=== PATIENT | male | born 1945 | race Caucasian/White ===

== ENCOUNTER → 2023-09-18 06:37 | Outpatient (REF) | payer MEDICARE, OTHER, SELFPAY ==
[2023-09-18 07:19] LABS: % Basophils 0.8 % (0-2); % Immature Granulocytes 0.2 % (0-0.5); % Lymphocytes 17.5 % (20.5-51.1); % Monocytes 14.3 % (1.7-9.3); % Neutrophils 58.2 % (42.2-75.2); Absolute Basophils 0.1 10^3/uL (0-0.2); Absolute Eosinophils 0.6 10^3/uL (0-0.7); Absolute Lymphocytes 1.1 10^3/uL (1.2-3.4); Absolute Monocytes 0.9 10^3/uL (0.1-0.6); Absolute Neutrophils 3.7 10^3/uL (1.4-6.5); Hematocrit 42.3 % (39.0-52.0); Hemoglobin 13.4 g/dL (13.0-18.0); Mean Corp Hgb Conc. 31.7 g/dL (33.0-37.0); Mean Corpuscular Hgb 29.7 pg (27.0-31.0); Mean Corpuscular Volume 93.8 fL (80.0-94.0); Nucleated Red Blood Cells % 0 % (-); Platelet Count 184 10^3/uL (130-400); Red Blood Cell Count 4.51 10^6/uL (4.70-6.10); Red Cell Dist. Width 15.1 % (11.5-14.5); White Blood Cell Count 6.3 10^3/uL (4.8-10.8)
== END ==
LOC: REG 06:37
PROVIDERS: ATTENDING PHYSICIAN Family Medicine
DX: E11.22 Type 2 diabetes mellitus with diabetic chronic kidney disease (principal); I10 Essential (primary) hypertension; E78.5 Hyperlipidemia, unspecified; Z12.5 Encounter for screening for malignant neoplasm of prostate; Z68.32 Body mass index [BMI] 32.0-32.9, adult
CPT/HCPCS: 36415; 85025

== ENCOUNTER → 2023-10-14 15:13 | Outpatient (REF) | payer MEDICARE, OTHER, SELFPAY | LOC: RAD 15:13 | PROVIDERS: ATTENDING PHYSICIAN Internal Medicine Critical Care Medicine; FAMILY PHYSICIAN Family Medicine | DX: J84.9 Interstitial pulmonary disease, unspecified (principal) | CPT/HCPCS: 71250 ==

== ENCOUNTER → 2023-11-28 08:56 | Outpatient (REF) | payer MEDICARE, OTHER, SELFPAY | LOC: RCS 08:56 | PROVIDERS: ATTENDING PHYSICIAN Internal Medicine; FAMILY PHYSICIAN Family Medicine | DX: I25.10 Atherosclerotic heart disease of native coronary artery without angina pectoris (principal); I49.3 Ventricular premature depolarization | CPT/HCPCS: 93225; 93226 ==

== ENCOUNTER → 2023-12-25 07:17 | Outpatient (REF) | payer MEDICARE, OTHER, SELFPAY ==
[2023-12-25 08:35] LABS: % Basophils 0.6 % (0-2); % Eosinophils 5.4 % (0-6); % Immature Granulocytes 0.4 % (0-0.5); % Lymphocytes 22.5 % (20.5-51.1); % Neutrophils 57.1 % (42.2-75.2); Absolute Eosinophils 0.3 10^3/uL (0-0.7); Absolute Lymphocytes 1.1 10^3/uL (1.2-3.4); Absolute Monocytes 0.7 10^3/uL (0.1-0.6); Absolute Neutrophils 2.8 10^3/uL (1.4-6.5); Hemoglobin 12.9 g/dL (13.0-18.0); Mean Corp Hgb Conc. 32.3 g/dL (33.0-37.0); Mean Corpuscular Hgb 29.5 pg (27.0-31.0); Mean Corpuscular Volume 91.3 fL (80.0-94.0); Mean Platelet Volume 11.4 fL (7.4-10.4); Nucleated Red Blood Cells % 0 % (-); Platelet Count 182 10^3/uL (130-400); Red Blood Cell Count 4.38 10^6/uL (4.70-6.10); White Blood Cell Count 4.8 10^3/uL (4.8-10.8)
[2023-12-25 10:51] LABS: ALT (SGPT) 21 U/L (0-50); AST (SGOT) 32 U/L (17-59); Albumin 4.2 g/dl (3.5-5.0); Alkaline Phosphatase 48 U/L (38-126); Blood Urea Nitrogen 24 mg/dl (9-20); Calcium 9.7 mg/dl (8.4-10.2); Carbon Dioxide 26 mmol/L (22-30); Chloride 105 mmol/L (98-107); Glucose 103 mg/dl (70-99); HDL Cholesterol 61 mg/dl; LDL Cholesterol, Calculated 59 mg/dl; Potassium 4.6 mmol/L (3.5-5.1); Sodium 138 mmol/L (135-145); Total Bilirubin 0.6 mg/dl (0.2-1.3); Total Cholesterol 134 mg/dl (50-199); Total Protein 6.5 g/dl (6.3-8.2); Triglyceride 74 mg/dl (10-149); Very Low Density Lipoprotein 14 mg/dl (0-30); eGFR > 60.00
[2023-12-25 10:59] LABS: PSA, Total - Screen 2.07 ng/ml (0.0-4.0)
[2023-12-26 10:12] LABS: Glycohemoglobin (HgbA1c) 6.3 % (4.0-5.6)
== END ==
LOC: REG 07:17
PROVIDERS: ATTENDING PHYSICIAN Family Medicine
DX: I10 Essential (primary) hypertension (principal); E78.2 Mixed hyperlipidemia; E11.22 Type 2 diabetes mellitus with diabetic chronic kidney disease; I25.10 Atherosclerotic heart disease of native coronary artery without angina pectoris; Z12.5 Encounter for screening for malignant neoplasm of prostate
CPT/HCPCS: 36415; 80053; 80061; 83036; 85025; G0103

== ENCOUNTER → 2024-01-19 11:04 | Outpatient (REF) | payer MEDICARE, OTHER, SELFPAY | LOC: RCS 11:04 | PROVIDERS: ATTENDING PHYSICIAN Internal Medicine; FAMILY PHYSICIAN Family Medicine | DX: I25.10 Atherosclerotic heart disease of native coronary artery without angina pectoris (principal); I10 Essential (primary) hypertension; I49.3 Ventricular premature depolarization; I49.1 Atrial premature depolarization | CPT/HCPCS: 93306 ==

== ENCOUNTER → 2024-04-26 07:00 | Outpatient (REF) | payer MEDICARE, OTHER, SELFPAY ==
[2024-04-26 08:54] LABS: % Basophils 0.7 % (0-2); % Eosinophils 6.7 % (0-6); % Immature Granulocytes 0.2 % (0-0.5); % Lymphocytes 16.8 % (20.5-51.1); % Monocytes 13.8 % (1.7-9.3); % Neutrophils 61.8 % (42.2-75.2); Absolute Eosinophils 0.4 10^3/uL (0-0.7); Absolute Monocytes 0.8 10^3/uL (0.1-0.6); Absolute Neutrophils 3.5 10^3/uL (1.4-6.5); Hemoglobin 12.6 g/dL (13.0-18.0); Mean Corp Hgb Conc. 32.3 g/dL (33.0-37.0); Mean Corpuscular Hgb 30.2 pg (27.0-31.0); Mean Corpuscular Volume 93.5 fL (80.0-94.0); Mean Platelet Volume 11.3 fL (7.4-10.4); Nucleated Red Blood Cells % 0 % (-); Platelet Count 196 10^3/uL (130-400); Red Blood Cell Count 4.17 10^6/uL (4.70-6.10); Red Cell Dist. Width 14.1 % (11.5-14.5); White Blood Cell Count 5.7 10^3/uL (4.8-10.8)
[2024-04-26 09:35] LABS: ALT (SGPT) 21 U/L (0-50); AST (SGOT) 29 U/L (17-59); Alkaline Phosphatase 43 U/L (38-126); Blood Urea Nitrogen 26 mg/dl (9-20); Calcium 8.9 mg/dl (8.4-10.2); Carbon Dioxide 29 mmol/L (22-30); Chloride 105 mmol/L (98-107); Glucose 111 mg/dl (70-99); HDL Cholesterol 60 mg/dl; LDL Cholesterol, Calculated 62 mg/dl; Potassium 4.9 mmol/L (3.5-5.1); Sodium 141 mmol/L (135-145); Total Bilirubin 0.4 mg/dl (0.2-1.3); Total Cholesterol 133 mg/dl (50-199); Total Protein 6.4 g/dl (6.3-8.2); Triglyceride 59 mg/dl (10-149); Very Low Density Lipoprotein 11 mg/dl (0-30); eGFR > 60.00
[2024-04-26 09:56] LABS: TSH 2.89 uIU/ml (0.47-4.68)
[2024-04-26 11:08] LABS: Glycohemoglobin (HgbA1c) 6.2 % (4.0-5.6)
== END ==
LOC: REG 07:00
PROVIDERS: ATTENDING PHYSICIAN Family Medicine; REFERRING PHYSICIAN Internal Medicine
DX: I25.10 Atherosclerotic heart disease of native coronary artery without angina pectoris (principal); I10 Essential (primary) hypertension; E78.2 Mixed hyperlipidemia; E11.22 Type 2 diabetes mellitus with diabetic chronic kidney disease; Z12.5 Encounter for screening for malignant neoplasm of prostate; E11.69 Type 2 diabetes mellitus with other specified complication; E78.5 Hyperlipidemia, unspecified
CPT/HCPCS: 36415; 80053; 80061; 83036; 84443; 85025

== ENCOUNTER → 2024-08-16 07:10 | Outpatient (REF) | payer MEDICARE, OTHER, SELFPAY ==
[2024-08-16 08:33] LABS: % Basophils 0.5 % (0-2); % Eosinophils 0.9 % (0-6); % Immature Granulocytes 0.2 % (0-0.5); % Lymphocytes 16.3 % (20.5-51.1); % Monocytes 11.9 % (1.7-9.3); % Neutrophils 70.2 % (42.2-75.2); Absolute Eosinophils 0.1 10^3/uL (0-0.7); Absolute Lymphocytes 1.1 10^3/uL (1.2-3.4); Absolute Monocytes 0.8 10^3/uL (0.1-0.6); Absolute Neutrophils 4.6 10^3/uL (1.4-6.5); Hematocrit 41.3 % (39.0-52.0); Hemoglobin 13.3 g/dL (13.0-18.0); Mean Corp Hgb Conc. 32.2 g/dL (33.0-37.0); Mean Corpuscular Hgb 29.6 pg (27.0-31.0); Mean Corpuscular Volume 91.8 fL (80.0-94.0); Mean Platelet Volume 11.2 fL (7.4-10.4); Nucleated Red Blood Cells % 0 % (-); Platelet Count 247 10^3/uL (130-400); Red Cell Dist. Width 14.8 % (11.5-14.5); White Blood Cell Count 6.6 10^3/uL (4.8-10.8)
[2024-08-18 10:30] LABS: Glycohemoglobin (HgbA1c) 6.6 % (4.0-5.6)
== END ==
LOC: REG 07:10
PROVIDERS: ATTENDING PHYSICIAN Family Medicine
DX: E11.22 Type 2 diabetes mellitus with diabetic chronic kidney disease (principal); I10 Essential (primary) hypertension; E78.5 Hyperlipidemia, unspecified; Z12.5 Encounter for screening for malignant neoplasm of prostate; Z68.32 Body mass index [BMI] 32.0-32.9, adult
CPT/HCPCS: 36415; 83036; 85025

== ENCOUNTER → 2024-10-06 09:13 | Outpatient (REF) | payer MEDICARE, OTHER, SELFPAY | LOC: RCS 09:13 | PROVIDERS: ATTENDING PHYSICIAN Internal Medicine; FAMILY PHYSICIAN Family Medicine | DX: I49.3 Ventricular premature depolarization (principal) | CPT/HCPCS: 93225; 93226 ==

== ENCOUNTER → 2024-11-16 07:34 | Outpatient (REF) | payer MEDICARE, OTHER, SELFPAY ==
[2024-11-16 08:28] LABS: Hematocrit 42.1 % (39.0-52.0); Hemoglobin 13.2 g/dL (13.0-18.0); Mean Corp Hgb Conc. 31.4 g/dL (33.0-37.0); Mean Corpuscular Volume 95.0 fL (80.0-94.0); Nucleated Red Blood Cells % 0 % (-); Platelet Count 203 10^3/uL (130-400); Red Cell Dist. Width 15.9 % (11.5-14.5)
[2024-11-16 08:58] LABS: Microalbumin, Random Urine 5.4 mg/dl (0.6-1.7)
[2024-11-16 09:01] LABS: ALT (SGPT) 23 U/L (0-50); AST (SGOT) 27 U/L (17-59); Albumin 4.2 g/dl (3.5-5.0); Alkaline Phosphatase 43 U/L (38-126); Blood Urea Nitrogen 28 mg/dl (9-20); Calcium 9.6 mg/dl (8.4-10.2); Carbon Dioxide 26 mmol/L (22-30); Chloride 109 mmol/L (98-107); Glucose 117 mg/dl (70-99); HDL Cholesterol 54 mg/dl; LDL Cholesterol, Calculated 42 mg/dl; Potassium 5.0 mmol/L (3.5-5.1); Sodium 142 mmol/L (135-145); Total Protein 6.6 g/dl (6.3-8.2); Very Low Density Lipoprotein 22 mg/dl (0-30); eGFR > 60.00
[2024-11-16 09:25] LABS: PSA, Total - Screen 2.72 ng/ml (0.0-4.0); TSH 2.19 uIU/ml (0.47-4.68)
[2024-11-16 09:40] LABS: Microalb - Urine Creatinine 358.300 mg/dl
[2024-11-16 09:53] LABS: Glycohemoglobin (HgbA1c) 6.3 % (4.0-5.6)
== END ==
LOC: REG 07:34
PROVIDERS: ATTENDING PHYSICIAN Family Medicine
DX: E78.2 Mixed hyperlipidemia (principal); E11.22 Type 2 diabetes mellitus with diabetic chronic kidney disease; I10 Essential (primary) hypertension; Z12.5 Encounter for screening for malignant neoplasm of prostate
CPT/HCPCS: 36415; 80053; 80061; 82043; 82570; 83036; 84443; 85025; G0103

== ENCOUNTER → 2025-03-29 06:56 | Outpatient (REF) | payer MEDICARE, OTHER, SELFPAY ==
[2025-03-29 08:11] LABS: ALT (SGPT) 22 U/L (0-50); AST (SGOT) 28 U/L (17-59); Albumin 4.2 g/dl (3.5-5.0); Alkaline Phosphatase 44 U/L (38-126); Blood Urea Nitrogen 28 mg/dl (9-20); Calcium 9.3 mg/dl (8.4-10.2); Carbon Dioxide 29 mmol/L (22-30); Chloride 104 mmol/L (98-107); Glucose 122 mg/dl (70-99); HDL Cholesterol 58 mg/dl; LDL Cholesterol, Calculated 54 mg/dl; Potassium 4.5 mmol/L (3.5-5.1); Sodium 139 mmol/L (135-145); Total Protein 6.8 g/dl (6.3-8.2); Very Low Density Lipoprotein 16 mg/dl (0-30); eGFR > 60.00
[2025-03-29 08:20] LABS: Hematocrit 42.9 % (39.0-52.0); Hemoglobin 13.5 g/dL (13.0-18.0); Mean Corp Hgb Conc. 31.5 g/dL (33.0-37.0); Mean Corpuscular Volume 93.1 fL (80.0-94.0); Nucleated Red Blood Cells % 0 % (-); Platelet Count 189 10^3/uL (130-400); Red Cell Dist. Width 14.1 % (11.5-14.5)
[2025-03-29 08:44] LABS: TSH 2.39 uIU/ml (0.47-4.68)
[2025-03-29 10:32] LABS: Glycohemoglobin (HgbA1c) 6.6 % (4.0-5.9)
== END ==
LOC: REG 06:56
PROVIDERS: ATTENDING PHYSICIAN Family Medicine
DX: E78.2 Mixed hyperlipidemia (principal); I10 Essential (primary) hypertension; E11.22 Type 2 diabetes mellitus with diabetic chronic kidney disease
CPT/HCPCS: 36415; 80053; 80061; 83036; 84443; 85025